=== PATIENT | female | born 1955 | race Caucasian/White ===

== ENCOUNTER 2019-04-29 08:04 | Inpatient (IN) | payer MEDICAID ==
[~2019-04-29] VITALS: Ht 170.2 cm; Wt 75.7 kg
[2019-04-29 13:15] VITALS: BP 131/67
[2019-04-29] MEDS ORDERED: LORazepam 2 MG TABLET PO PRN (13:45)
[2019-04-29] MEDS ORDERED: HALOPERIDOL 5 MG TABLET PO PRN (13:45)
[2019-04-29 14:29] VITALS: BP 121/74
[2019-04-29] MEDS ORDERED: PNEUMOCOCCAL VACCINE POLYVALENT 0.5 ML VIAL [PPSV23] IM ONE (15:45)
[2019-04-29 18:03] VITALS: BP 128/84
[2019-04-30] VITALS (7 sets, daily range): BP systolic 106–139; BP diastolic 50–84
[2019-04-30] MEDS: ZOLPIDEM TARTRATE 10 MG TABLET PO PRN (00:06)
[2019-04-30] MEDS ORDERED: LOPERAMIDE HCL 2 MG CAPSULE PO PRN (08:00)
[2019-04-30] MEDS ORDERED: CloNIDine HCL 0.1 MG TABLET PO PRN (08:00)
[2019-04-30] MEDS ORDERED: DOCUSATE SODIUM 100 MG CAPSULE PO PRN (08:00)
[2019-04-30] MEDS ORDERED: OMEPRAZOLE 20 MG CAPSULE PO PRN (08:00)
[2019-04-30] MEDS ORDERED: ACETAMINOPHEN 325 MG TABLET PO PRN (08:00)
[2019-04-30] MEDS ORDERED: IBUPROFEN 600 MG TABLET PO PRN (08:00)
[2019-04-30] MEDS ORDERED: MAGNESIUM HYDROXIDE SUSPENSION 30 ML UDCUP PO PRN (08:00)
[2019-04-30] MEDS ORDERED: ONDANSETRON HCL 4 MG TABLET PO PRN (08:00)
[2019-04-30] MEDS ORDERED: BACITRACIN 28.4 GM OINTMENT TP PRN (08:00)
[2019-04-30] MEDS ORDERED: BENZOCAINE/MENTHOL LOZENGE MM PRN (08:00)
[2019-04-30] MEDS ORDERED: ALBUTEROL SULFATE HFA 90 MCG/PUFF 8 GM INHALER IH PRN (08:00)
[2019-04-30] MEDS ORDERED: MAG HYDROX/AL HYDROX/SIMETH ES 30 ML SUSPENSION UDCUP PO PRN (08:00)
[2019-04-30] MEDS ORDERED: PETROLATUM,WHITE 28 GM JELLY TP PRN (08:00)
[2019-04-30] MEDS: RisperiDONE 2 MG TABLET PO SCH ×2 (08:37→16:34)
[2019-04-30] MEDS: LITHIUM CARBONATE 300 MG CAPSULE PO SCH ×2 (08:37→16:34)
[2019-05-01 00:12] VITALS: BP 133/80
[2019-05-01 08:06] VITALS: BP 129/60
[2019-05-01] MEDS: RisperiDONE 2 MG TABLET PO SCH ×2 (08:29→16:05)
[2019-05-01] MEDS: LITHIUM CARBONATE 300 MG CAPSULE PO SCH ×2 (08:29→16:05)
[2019-05-01 16:01] VITALS: BP 124/75
[2019-05-01] MEDS: ZOLPIDEM TARTRATE 10 MG TABLET PO PRN (21:56)
[2019-05-02 00:26] VITALS: BP 120/75
[2019-05-02 00:35] VITALS: BP 120/75
[2019-05-02 07:23] LABS: BASOPHILS % (AUTO) 1.2 % (0.0-2.0); EOSINOPHILS % (AUTO) 6.9 % (1.0-6.0); HEMATOCRIT 42.6 % (36-46); HEMOGLOBIN 14.3 g/dL (12.0-16.0); LYMPHOCYTES # (AUTO) 1.1 K/uL (1.0-4.8); LYMPHOCYTES % (AUTO) 18.2 % (22.0-44.0); MEAN CORPUSCULAR HEMOGLOBIN 32.6 pg (26.0-34.0); MEAN CORPUSCULAR HGB CONC 33.7 G/dL (31.0-37.0); MEAN CORPUSCULAR VOLUME 97 fL (80-100); MONOCYTES # (AUTO) 0.6 K/uL (0.1-1.0); MONOCYTES % (AUTO) 10.5 % (2.0-9.0); NEUTROPHILS # (AUTO) 3.8 K/uL (1.8-7.7); NEUTROPHILS % (AUTO) 63.2 % (40.0-70.0); PLATELET COUNT (AUTO) 218 K/uL (150-450); RED CELL DISTRIBUTION WIDTH 12.6 % (11.5-14.5)
[2019-05-02 07:37] LABS: HEMOGLOBIN A1C 5.5 % (4.5-6.2)
[2019-05-02 08:00] LABS: ALBUMIN 3.4 g/dL (3.4-5.0); BILIRUBIN,TOTAL 0.3 mg/dL (0.1-1.0); CALCIUM, TOTAL 10.7 mg/dL (8.8-10.5); CREATININE 0.94 mg/dL (0.60-1.30); FREE T4 (FREE THYROXINE) 1.08 ng/dL (0.76-1.46); POTASSIUM 4.6 mmol/L (3.5-5.1); THYROID STIMULATING HORMONE 1.56 uIU/mL (0.36-3.74); TOTAL PROTEIN, SERUM 6.3 g/dL (6.4-8.2)
[2019-05-02 08:12] VITALS: BP 122/66
[2019-05-02] MEDS: LITHIUM CARBONATE 300 MG CAPSULE PO SCH ×2 (08:53→16:12)
[2019-05-02] MEDS: RisperiDONE 2 MG TABLET PO SCH ×2 (08:53→16:12)
[2019-05-02 16:03] VITALS: BP 122/82
[2019-05-02] MEDS: ZOLPIDEM TARTRATE 10 MG TABLET PO PRN (22:05)
[2019-05-03 00:08] VITALS: BP 118/64
[2019-05-03 07:59] LABS: APPEARANCE,URINE CLEAR (CLEAR); BILIRUBIN,URINE NEGATIVE (NEGATIVE); GLUCOSE, URINE (UA) NEGATIVE (NEGATIVE); KETONES,URINE NEGATIVE (NEGATIVE); LEUKOCYTE ESTERASE ,URINE NEGATIVE (NEGATIVE); NITRATE,URINE NEGATIVE (NEGATIVE); OCCULT BLOOD,URINE NEGATIVE (NEGATIVE); PH,URINE 6.5 (5.0-8.0); PROTEIN,URINE NEGATIVE (NEGATIVE); UROBILINOGEN,URINE 0.2 mg/dL (<=1.0)
[2019-05-03] MEDS: LITHIUM CARBONATE 300 MG CAPSULE PO SCH ×2 (08:04→17:02)
[2019-05-03] MEDS: RisperiDONE 2 MG TABLET PO SCH ×2 (08:04→17:02)
[2019-05-03 08:05] LABS: AMPHET/METH SCREEN,URINE NEGATIVE (NEGATIVE); BARBITURATE SCREEN, URINE NEGATIVE (NEGATIVE); BENZODIAZEPINES SCREEN,URINE NEGATIVE (NEGATIVE); CANNABINOID SCREEN,URINE NEGATIVE (NEGATIVE); COCAINE SCREEN,URINE NEGATIVE (NEGATIVE); METHADONE SCREEN, URINE NEGATIVE (NEGATIVE); OPIATE SCREEN,URINE NEGATIVE (NEGATIVE)
[2019-05-03 08:07] LABS: PHENCYCLIDINE SCREEN,URINE NEGATIVE (NEGATIVE)
[2019-05-03 08:11] VITALS: BP 123/82
[2019-05-03 15:51] VITALS: BP 140/85
[2019-05-03 16:02] VITALS: BP 140/85
[2019-05-03] MEDS: ZOLPIDEM TARTRATE 10 MG TABLET PO PRN (22:31)
[2019-05-04 00:38] VITALS: BP 109/69
[2019-05-04 08:16] VITALS: BP 125/91
[2019-05-04] MEDS: RisperiDONE 2 MG TABLET PO SCH ×2 (09:22→16:00)
[2019-05-04] MEDS: LITHIUM CARBONATE 300 MG CAPSULE PO SCH ×2 (09:23→16:00)
[2019-05-04] MEDS ORDERED: HYPROMELLOSE 0.5% 15 ML OPHTHALMIC SOLUTION OU PRN (11:15)
[2019-05-04 16:04] VITALS: BP 139/91
[2019-05-04] MEDS ORDERED: PHENYLEPHRINE/SHK LV/MIN OIL/PET 57 GM OINTMENT TP PRN (20:30)
[2019-05-04] MEDS: ZOLPIDEM TARTRATE 10 MG TABLET PO PRN (22:18)
[2019-05-05 00:09] VITALS: BP 123/74
[2019-05-05] MEDS: LITHIUM CARBONATE 300 MG CAPSULE PO SCH ×2 (08:06→16:05)
[2019-05-05 08:07] VITALS: BP 120/62
[2019-05-05] MEDS: RisperiDONE 2 MG TABLET PO SCH ×2 (08:07→16:05)
[2019-05-05] MEDS ORDERED: LITH300C3 PO (12:59)
[2019-05-05] MEDS ORDERED: RISP2 PO (13:00)
[2019-05-05 17:09] VITALS: BP 116/73
== END 2019-05-05 20:30 | disposition home or self-care (01) | DRG 753 ==
LOC: B2S 13:42
PROVIDERS: ADMIT Psychiatry & Neurology Psychiatry; ATTEND Psychiatry & Neurology Psychiatry
DX: F31.9 Bipolar disorder, unspecified (principal); G47.00 Insomnia, unspecified; K59.00 Constipation, unspecified
CPT/HCPCS: 80307; 83036; 84439; 84443; 90732